=== PATIENT | female | born 1990 | race Caucasian/White ===

== ENCOUNTER 2019-06-10 14:08 | Emergency (ER) | payer SELFPAY ==
[~2019-06-10] VITALS: Ht 157.5 cm; Wt 104.5 kg
[2019-06-10 14:15] VITALS: BP 133/76; Ht 157.5 cm; Wt 104.5 kg
[2019-06-10 14:38] LABS: BASOPHILS 0.2 % (0-2); EOSINOPHILS 1.3 % (0-7); HEMATOCRIT 49.8 % (36.0-48.0); HEMOGLOBIN 16.6 g/dL (12-16); IMMATURE GRANULOCYTES 0.2 % (0-5); LYMPHOCYTES 34.7 % (15-50); MCH 28.8 pg (26.0-34.0); MCHC 33.3 g/dL (31.0-37.0); MCV 86.3 fL (80.0-100.0); MEAN PLATELET VOLUME 10.2 fL (7.4-10.4); NEUTROPHILS 57.6 % (40-80); PLATELET COUNT 235 10x3/uL (130-400); RBC 5.77 10x6/uL (4.00-5.40); RDW 13.8 % (11.5-14.5); WBC 8.6 10x3/uL (4.8-10.8)
[2019-06-10 14:53] LABS: ANION GAP 12.3 mmol/L (8-16); CALCIUM 9.2 mg/dL (8.5-10.1); CARBON DIOXIDE 25.8 mmol/L (21.0-32.0); POTASSIUM - SERUM 4.1 mmol/L (3.5-5.1)
[2019-06-10 14:53] LABS: APPEARANCE HAZY (CLEAR); BACTERIA MODERATE /hpf (NEGATIVE); BILIRUBIN NEGATIVE (NEGATIVE); COLOR YELLOW (YELLOW); GLUCOSE NEGATIVE (NEGATIVE); KETONE NEGATIVE (NEGATIVE); MUCUS <1+ /lpf (NONE SEEN); NITRITE NEGATIVE (NEGATIVE); PROTEIN NEGATIVE (NEGATIVE); SPECIFIC GRAVITY 1.025 (1.005-1.020); UROBILINOGEN NORMAL (NORMAL)
[2019-06-10 14:58] LABS: ALBUMIN 4.3 g/dL (3.4-5.0); BILIRUBIN - TOTAL 0.41 mg/dL (0.2-1.3)
[2019-06-10 16:00] LABS: HCG SERUM NEGATIVE (NEGATIVE)
[2019-06-10] MEDS ORDERED: VOLTAREN75 MG PO (16:37)
[2019-06-10] MEDS ORDERED: MACROBID100 MG PO (16:37)
[2019-06-10] MEDS ORDERED: ZOFRAN ODT4 MG/UDTAB PO (16:37)
== END 2019-06-10 16:29 | disposition left against medical advice (07) ==
LOC: D.ER 14:08
PROVIDERS: Family Medicine
DX: N39.0 Urinary tract infection, site not specified (principal)